=== PATIENT | female | born 1995 | race Caucasian/White ===

== ENCOUNTER 2016-05-17 10:24 | Emergency (ER) | payer MEDICAID, OTHER ==
[~2016-05-17] VITALS: Wt 81.5 kg
[2016-05-17 12:36] LABS: URINE BLOOD (Dip) POC Trace-intact (NEGATIVE)
--- NOTE | 2016-05-17 12:59 | RADRPT ---
PROCEDURE: CT Brain without contrast. CLINICAL INDICATION: Pain, headache TECHNIQUE: Routine CT scan of the brain was performed on a high resolution multi detector scanner without intravenous contrast. One or more of the following dose reduction techniques were used: Auto mated exposure control; Adjustment of the mA and/or kV according to patient size; Use of iterative r econstruction technique. CTDI = 32 mGy. DLP = 451 mGy-cm. COMPARISON: No prior relevant examinations are available for comparison. FINDINGS: Hemorrhage: No evidence of intracranial hemorrhage. Acute ischemic changes: No evidence of acute ischemic changes. Mass effect/Midline shift: None. Parenchymal volume: Within normal limits for age. Ventricular system: Concordant with parenchymal volume. Chronic changes: Parenchymal attenuation is within normal limits. Extracranial soft tissues: Unremarkable. Calvarium: No fractures. Paranasal sinuses: Visualized paranasal sinuses are clear. Mastoid air cells: Visualized mastoid air cells are clear. IMPRESSION: No acute intracranial abnormalities. Normal appearance the brain parenchyma. RPTAT: AADD .Ariel Rosenberg MD, MD Date Time Electronically viewed and signed by .Ariel Rosenberg MD, on 05/17/2016 12:59 .B/
[2016-05-17] MEDS ORDERED: IBUP-1542 PO (13:11)
--- NOTE | 2016-05-17 13:14 | ERD ---
ER Documentation Chief Complaint Date/Time DATE: 05/17/16 TIME: 13:13 Chief Complaint non traumatic headache for the past few months. no trauma. noneuro def HPI This 89-year-old female presents with a bitemporal and oral headache for last few months. She states that her doctor just wants to give her pills and has not done any studies. She has additional complaint of fatigue and shakiness over the last few months and states that she is under stress. She denies any visual changes, weakness, bowel or bladder incontinence, fevers, visual changes , urinary complaints, additional symptoms. ROS All systems reviewed and are negative except as per history of present illness. Medications Home Meds Active Scripts Ibuprofen* (Motrin*) 600 Mg Tab, 600 MG PO Q6, #20 TAB Prov:WILLIAM RÍOS MD 05/17/16 Allergies Allergies: Coded Allergies: No Known Allergy (Unverified , 05/17/16) PMhx/Soc Medical and Surgical Hx: pt denies Medical Hx History of Surgery: Yes (R ARM) Anesthesia Reaction: No Hx Neurological Disorder: No Hx Respiratory Disorders: No Hx Cardiac Disorders: No Hx Psychiatric Problems: No Hx Miscellaneous Medical Probl: No Hx Alcohol Use: No Hx Substance Use: No Hx Tobacco Use: No Smoking Status: Never smoker Physical Exam Vitals Vital Signs Date Time Temp Pulse Resp B/P Pulse Ox O2 Delivery O2 Flow Rate FiO2 05/17/16 10:28 98.9 59 20 105/88 100 Physical Exam Const: [] Alert, not ill-appearing. Head: Atraumatic. Reproducible headache with palpation of the C1 paraspinous muscles and bitemporal area. Eyes: Normal Conjunctiva. Eyes are PERRLA extraocular movements intact. ENT: Normal External Ears, Nose and Mouth. Neck: Full range of motion..~ No meningismus. Resp: Clear to auscultation bilaterally Cardio: Regular rate and rhythm, no murmurs Abd: Soft, non tender, non distended. Normal bowel sounds Skin: No petechiae or rashes Back: No midline or flank tenderness Ext: No cyanosis, or edema Neur: Awake and alert. Cranial nerves II through XII grossly intact. Normal gait. No cerebellar signs. Psych: Normal Mood and Affect Results 24 hrs Laboratory Tests Test 05/17/16 12:40 Bedside Urine Blood Trace-intact Bedside Urine Glucose (UA) Negative Bedside Urine Ketones (LAB) Negative Bedside Urine Leukocyte Esterase (L Negative Bedside Urine Nitrite (LAB) Negative Bedside Urine Protein (LAB) Negative Bedside Urine pH (LAB) 7.0 Procedures/MDM Given his certain cause of headache and family request. A CT venous approach is normal. Visual acuity is normal. Urine shows trace blood but no leukocytes , glucose or nitrites. HCG is negative. Patient presents with bitemporal and occipital headache of uncertain etiology. I suspect she has a tension headache. Patient has multiple complaints no signs or symptoms to suggest serious illness. Recommend follow-up with primary care doctor for a physical otherwise return for any worsening symptoms of headache as directed after instructions. The patient was stable with no new complaints during the ER course. Clinically, there is no current evidence to suggest meningitis, sepsis, acute abdomen, pneumonia, acute coronary syndrome, pulmonary embolism, or any other emergent condition appearing to require further evaluation or hospitalization. The patient should certainly return for any new or worsening symptoms per the aftercare instructions. They should otherwise follow-up with her primary care doctor for reevaluation this week. Departure Diagnosis: Primary Impression: Headache Headache type: unspecified Headache chronicity pattern: unspecified pattern Intractability: not intractable Qualified Code: R51 - Nonintractable headache, unspecified chronicity pattern, unspecified headache type Condition: Stable Patient Instructions: Self-Care for Headaches, Headache, Tension Additional Instructions: CT read as normal. Suspect tension headache. Recommend follow-up with primary doctor for physical and further evaluation and treatment. WILLIAM RÍOS MD May 17, 2016 13:14
[2016-05-17 13:44] VITALS: BP 114/57; PULSE 72; RESP 18
== END 2016-05-17 13:46 | disposition home or self-care (01) ==
LOC: FTE 10:24
DX: R51 Headache (principal)
CPT/HCPCS: 70450; 81003; Z7502

== ENCOUNTER 2016-06-21 12:46 | Emergency (ER) | payer OTHER ==
[~2016-06-21] VITALS: Ht 160 cm; Wt 83.5 kg
[~2016-06-21 12:46] MED LIST: IBUP-1542 PO
[2016-06-21 12:54] VITALS: Ht 160 cm; Wt 83.5 kg
[2016-06-21] MEDS ORDERED: IBUPROFEN 600 MG TAB PO ONE (15:00)
[2016-06-21 15:08] LABS: URINE BLOOD (Dip) POC Negative (NEGATIVE)
[2016-06-21 15:13] LABS: URINE BLOOD (Dip) POC Negative (NEGATIVE)
--- NOTE | 2016-06-21 16:24 | RADRPT ---
PROCEDURE: XR Lumbar Spine. CLINICAL INDICATION: Post traumatic low back pain. TECHNIQUE: AP, cone-down lateral, and lateral views of the lumbar spine were obtained. COMPARISON: None. FINDINGS: Mineralization is within normal limits. Vertebral bodies are normal in height. No fracture is iden tified. Lumbar lordosis is preserved. No vertebral subluxation is seen. The intervertebral discs are normal in height. Paraspinal contours are unremarkable. RPTAT:HJJR IMPRESSION: Unremarkable three view series of the lumbar spine. Physician Reg Date Time Electronically viewed and signed by Physician Reg on 06/21/2016 16:23 /
[2016-06-21] MEDS ORDERED: IBUP-1542 PO (16:35)
[2016-06-21] MEDS ORDERED: TRAM50TA2 PO (16:35)
--- NOTE | 2016-06-21 16:39 | ERD ---
ER Documentation Chief Complaint Date/Time DATE: 06/21/16 TIME: 16:37 Chief Complaint BACK PAIN X 4 DAYS S/P SLIP AND FALL DOWN THE STAIRS ON TUESDAY HPI This 89-year-old female complains of low back pain 4 days after slipping down some stairs onto her buttocks and back. She denies any bowel bladder incontinence, weakness, bleeding lacerations or head injury. ROS All systems reviewed and are negative except as per history of present illness. Medications Home Meds Active Scripts Tramadol HCl (Tramadol HCl) 50 Mg Tablet, 50 MG PO Q4 Y for PAIN, #12 TAB Prov:WILLIAM RÍOS MD 06/21/16 Ibuprofen* (Motrin*) 600 Mg Tab, 600 MG PO Q6, #20 TAB Prov:WILLIAM RÍOS MD 06/21/16 Ibuprofen* (Motrin*) 600 Mg Tab, 600 MG PO Q6, #20 TAB Prov:WILLIAM RÍOS MD 05/17/16 Allergies Allergies: Coded Allergies: No Known Allergy (Unverified , 05/17/16) PMhx/Soc History of Surgery: Yes (R ARM) Anesthesia Reaction: No Hx Neurological Disorder: No Hx Respiratory Disorders: No Hx Cardiac Disorders: No Hx Psychiatric Problems: No Hx Miscellaneous Medical Probl: No Hx Alcohol Use: No Hx Substance Use: No Hx Tobacco Use: No Physical Exam Vitals Vital Signs Date Time Temp Pulse Resp B/P Pulse Ox O2 Delivery O2 Flow Rate FiO2 06/21/16 12:54 98.2 77 18 112/68 100 Physical Exam Const: [] Alert, [id number]-[id number]. Head: Atraumatic Eyes: Normal Conjunctiva ENT: Normal External Ears, Nose and Mouth. Neck: Full range of motion..~ No meningismus. Resp: Clear to auscultation bilaterally Cardio: Regular rate and rhythm, no murmurs Abd: Soft, non tender, non distended. Normal bowel sounds Skin: No petechiae or rashes Back: No midline or flank tenderness. Mild generalized tenderness extending from L2-L4 paraspinous muscles without significant midline tenderness no deformities appreciated. Patient is ambulatory without deficits or weakness. Ext: No cyanosis, or edema Neur: Awake and alert Psych: Normal Mood and Affect Results 24 hrs Laboratory Tests Test 06/21/16 15:08 06/21/16 15:13 Bedside Urine pH (LAB) 5.5 5.5 Bedside Urine Protein (LAB) Negative Negative Bedside Urine Glucose (UA) Negative Negative Bedside Urine Ketones (LAB) Negative Negative Bedside Urine Blood Negative Negative Bedside Urine Nitrite (LAB) Negative Negative Bedside Urine Leukocyte Esterase (L 1+ 1+ Current Medications Medications (Trade) Dose Ordered Sig/Avani Route PRN Reason Start Time Stop Time Status Last Admin Dose Admin Ibuprofen (Motrin) 600 mg ONCE ONCE PO 06/21/16 15:00 06/21/16 15:01 DC 06/21/16 15:08 Procedures/MDM Urine shows 1+ leukocytes and hCG is negative. There is no gross blood nitrates glucose. X-ray LS-Spine 3V Interpreted by me: Bones: No fracture, or lytic lesions Joints: No dislocation Foreign body: None. Impression-normal lumbar spine x-ray Patient presents with low back pain after slipping backwards onto her buttocks and back 4 days ago. X-rays normal. There is no signs of cauda equina syndrome , fracture, dislocation, neurologic deficits, additional complications of her mechanical fall. She will treated with ibuprofen and tramadol, instructions for back exercises and further observation at home. The patient was stable with no new complaints during the ER course. Clinically, there is no current evidence to suggest meningitis, sepsis, acute abdomen, pneumonia, acute coronary syndrome, pulmonary embolism, or any other emergent condition appearing to require further evaluation or hospitalization. The patient should certainly return for any new or worsening symptoms per the aftercare instructions. They should otherwise follow-up with her primary care doctor for reevaluation this week. Departure Diagnosis: Primary Impression: Injury of back Encounter type: initial encounter Qualified Code: S39.92XA - Injury of back , initial encounter Condition: Stable Patient Instructions: Back Exercises, Lumbar, Back Sprain/Strain Additional Instructions: Examines normal hoy. Cheque otro vez con plaza doctor primario en el proximo lindsey or regresa para mas o nueva simptomas. WILLIAM RÍOS MD Jun 21, 2016 16:38
== END 2016-06-21 17:04 | disposition home or self-care (01) ==
LOC: FTE 12:46
DX: S39.92XA Unspecified injury of lower back, initial encounter (principal); W10.9XXA Fall (on) (from) unspecified stairs and steps, initial encounter; Y92.9 Unspecified place or not applicable
CPT/HCPCS: 72100; 81003; Z7502; Z7610

== ENCOUNTER 2017-12-27 11:19 | Emergency (ER) | END 2017-12-27 16:02 | disposition home or self-care (01) ==

== ENCOUNTER 2018-04-28 13:16 | Emergency (ER) | payer OTHER ==
[~2018-04-28] VITALS: Wt 76.5 kg
[~2018-04-28 13:16] MED LIST changes: +TRAM50TA2 PO
[2018-04-28] MEDS ORDERED: ONDANSETRON 4 MG INJ IV STA (14:31)
[2018-04-28] MEDS ORDERED: FAMOTIDINE 20 MG INJ IV STA (14:31)
[2018-04-28] MEDS ORDERED: SOD CHLORIDE 0.9% 500 ML IV STA (14:31)
[2018-04-28] MEDS ORDERED: LIDOCAINE/MYLANTA 40 ML BTL PO STA (14:31)
--- NOTE | 2018-04-28 14:35 | ERD ---
ER Documentation Chief Complaint Chief Complaint ABD PAIN X 4 DAYS HPI This is a 22-year-old female with a nonsignificant past medical history presents ED with upper abdominal pain that is been present for the past 2 days. Patient describes the pain is constant and rates it at a 6 out of 10. Patient admits to having 2 episodes of nonbilious nonbloody vomiting associated with the belly pain. Denies any alleviating or aggravating factors. Patient is . ADMITS to some vaginal itching but denies any other symptoms. Denies diarrhea, constipation, melena, hematochezia, fever, chills, hematemesis, hemoptysis, hematuria, back pain, vaginal pain or vaginal discharge. ROS All systems reviewed and are negative except as per history of present illness. Medications Home Meds Active Scripts Clotrimazole* (Clotrimazole* AF) 1% - 30 Gm Cream.gm., 1 APPLIC TOP BID for 7 Days, TUB Prov:REJI BARRERA PA-C 04/28/18 Famotidine* (Pepcid*) 20 Mg Tablet, 20 MG PO BID for 4 Days, TAB Prov:REJI BARRERA PA-C 04/28/18 Ondansetron (Ondansetron Odt) 4 Mg Tab.rapdis, 4 MG PO Q6H PRN for NAUSEA AND/OR VOMITING, #10 TAB Prov:REJI BARRERA PA-C 04/28/18 Ibuprofen* (Motrin*) 600 Mg Tab, 600 MG PO Q6, #30 TAB Prov:MARINO ERICKSON PA-C 12/27/17 Tramadol HCl (Tramadol HCl) 50 Mg Tablet, 50 MG PO Q4 PRN for PAIN, #12 TAB Prov:WILLIAM RÍOS MD 06/21/16 Ibuprofen* (Motrin*) 600 Mg Tab, 600 MG PO Q6, #20 TAB Prov:WILLIAM RÍOS MD 06/21/16 Ibuprofen* (Motrin*) 600 Mg Tab, 600 MG PO Q6, #20 TAB Prov:WILLIAM RÍOS MD 05/17/16 Allergies Allergies: Coded Allergies: No Known Allergy (Unverified , 05/17/16) PMhx/Soc History of Surgery: Yes (R ARM) Anesthesia Reaction: No Hx Neurological Disorder: No Hx Respiratory Disorders: No Hx Cardiac Disorders: No Hx Psychiatric Problems: No Hx Miscellaneous Medical Probl: No Hx Alcohol Use: No Hx Substance Use: No Hx Tobacco Use: No Physical Exam Vitals Vital Signs Date Temp Pulse Resp B/P (MAP) Pulse Ox O2 O2 Flow FiO2 Time Delivery Rate 04/28/18 98.1 78 18 125/71 99 13:20 (89) Physical Exam Physical Exam Vitals signs: Reviewed by me. General: Well developed, well nourished, in no acute distress. Patient is awake and alert. Head: Normocephalic, atraumatic. Eyes: Normal conjunctiva, Pupils PERRLA, EOM intact grossly ENT: Pharynx is clear, Moist mucous membranes, external ears, nose and mouth normal Neck: Supple, no masses, lymphadenopathy or JVD Respiratory: Clear to auscultation bilaterally with no wheezing, rhonchi, rales, no distress Cardiovascular: RRR, no murmurs, rubs, or gallops Abdominal: Soft, nondistended, no peritoneal signs, no rigidity, no surgical abdomen, bowel sounds present all 4 quadrants, mild tenderness in epigastric region, nontender in all other quadrants Covington sign negative, M McBurney's point nontender, no rebound tenderness : defers Back: No midline tenderness. No flank tenderness Neurologic: Alert and oriented, moving all extremities, normal speech, no focal weakness, no cerebellar signs. Normal mentation Skin: warm and dry, No rash Psych: Normal mood Result Diagram: 04/28/18 1450 04/28/18 1450 Results 24 hrs Laboratory Tests Test 04/28/18 14:42 04/28/18 14:45 04/28/18 14:50 Urine Test NEGATIVE Urine Color YELLOW Urine Clarity CLEAR Urine pH 7.0 Urine Specific Mcallister 1.016 Urine Ketones NEGATIVE mg/dL Urine Nitrite NEGATIVE mg/dL Urine Bilirubin NEGATIVE mg/dL Urine Urobilinogen 2+ mg/dL Urine Leukocyte Esterase NEGATIVE [place]/ul Urine Hemoglobin NEGATIVE mg/dL Urine Glucose NEGATIVE mg/dL Urine Total Protein NEGATIVE mg/dl White Blood Count 7.2 10^3/ul Red Blood Count 4.55 10^6/ul Hemoglobin 14.0 g/dl Hematocrit 43.3 % Mean Corpuscular Volume 95.2 fl Mean Corpuscular Hemoglobin 30.8 pg Mean Corpuscular 32.3 g/dl Hemoglobin Concent Red Cell Distribution Width 12.9 % Platelet Count 360 10^3/UL Mean Platelet Volume 9.9 fl Immature Granulocytes % 0.400 % Neutrophils % 70.1 % Lymphocytes % 16.7 % Monocytes % 9.3 % Eosinophils % 2.9 % Basophils % 0.6 % Nucleated Red Blood Cells % 0.0 /100WBC Immature Granulocytes # 0.030 10^3/ul Neutrophils # 5.1 10^3/ul Lymphocytes # 1.2 10^3/ul Monocytes # 0.7 10^3/ul Eosinophils # 0.2 10^3/ul Basophils # 0.0 10^3/ul Nucleated Red Blood Cells # 0.0 10^3/ul Sodium Level 141 mmol/L Potassium Level 4.4 mmol/L Chloride Level 103 mmol/L Carbon Dioxide Level 30 mmol/L Anion Gap 8 Blood Urea Nitrogen 7 mg/dl Creatinine 0.59 mg/dl Est Glomerular Filtrat > 60 mL/min Rate mL/min Glucose Level 83 mg/dl Calcium Level 9.7 mg/dl Total Bilirubin 0.2 mg/dl Direct Bilirubin 0.00 mg/dl Indirect Bilirubin 0.2 mg/dl Aspartate Amino 22 IU/L Transf (AST/SGOT) Alanine 17 IU/L Aminotransferase (ALT/SGPT) Alkaline Phosphatase 71 IU/L Total Protein 7.8 g/dl Albumin 4.4 g/dl Globulin 3.40 g/dl Albumin/Globulin Ratio 1.29 Lipase 66 U/L Current Medications Medications Dose Sig/Avani Start Time Status Last (Trade) Ordered Route PRN Stop Time Admin Dose Reason Admin Sodium 500 ml @ Q1H STAT 04/28/18 DC 04/28/18 Chloride 500 mls/hr IV 14:31 14:47 04/28/18 15:30 Ondansetron 4 mg ONCE STAT 04/28/18 DC 04/28/18 HCl (Zofran IV 14:31 14:51 Inj) 04/28/18 14:33 Famotidine 20 mg ONCE STAT 04/28/18 DC 04/28/18 (Pepcid Iv) IV 14:31 14:51 04/28/18 14:33 40 ml ONCE STAT 04/28/18 DC 04/28/18 Miscellaneous PO 14:31 14:51 Medication 04/28/18 14:33 (Gi Cocktail (2)) Procedures/MDM EKG, MONITORS, & DIAGNOSTIC IMAGING: [place] [address] Radiology Main Line: [phone] DIAGNOSTIC IMAGING REPORT Patient: POOJA MANCILLA : 1995 Age: 22 Sex: F MR #: [id number] DOS: 04/28/18 1431 Ordering MD: REJI BARRERA PA-C Location: [facility] Room/Bed: PROCEDURE: US Abdomen. CLINICAL INDICATION: abdominal pain TECHNIQUE: Multiple real-time images were acquired of the patient's right upper quadrant abdomen and retroperitoneum utilizing a high resolution transducer. COMPARISON: None FINDINGS: The liver demonstrates normal echogenicity. The liver is normal in size and no focal solid lesions are seen. The liver measures 15.4 cm in length. The portal vein is patent with normal direction of flow. No intrahepatic biliary dilatation is seen. No gallstones are identified within the gallbladder. There is no perichole cystic fluid or gallbladder wall thickening. The common bile duct measures 5 mm in maximal dimension. Increased No free fluid is identified. The right kidney is normal in size, and demonstrate normal echogenicity and cortical thickness. The right kidney measures 10.3 cm in long dimension. There is no evidence of hydronephrosis. There are no kidney stones. RPTAT: AA IMPRESSION: Unremarkable right upper quadrant abdominal ultrasound. .Adelfo Phan MD, MD Date Time Electronically viewed and signed by .Adelfo Phan MD, MD on 04/28/2018 15:36 .S/ CC: REJI BARRERA PA-C [id number] LAB INTERPRETATION: CBC shows no evidence of hemorrhage or infection Chemistry shows no evidence of significant electrolyte abnormalities or renal insufficiency Liver function test shows no evidence of acute biliary or hepatic dysfunction Lipase shows no evidence of acute pancreatitis UA unremarkable Urine negative ER COURSE: The patient was given normal saline, Pepcid, GI cocktail, Zofran The medication was well tolerated and the patient reports improvement in symptoms. The patient was stable throughout ED course. I kept the patient and/or family informed of laboratory and diagnostic imaging results throughout the emergency room course. The patient was promptly evaluated and a treatment plan was devised based on H&P and other data. This plan was discussed with the patient who agreed and had no further questions or concerns prior to discharge. MEDICAL DECISION MAKING: Non- woman presenting with abdominal pain. test is negative. Considered causes of female-specific abdominal pain including pelvic infla mmatory disease, tubo-ovarian abscess, Slwq-[id number]-[id number], and ovarian torsion. Also considered causes of abdominal pain that are not gender-specific (e.g., appendicitis, volvulus, small bowel obstruction, mesenteric adenitis, acute cholecystitis/choledocholithiasis and other biliary pathology, etc.). Patient well-appearing with normal vital signs. No peritoneal signs and abdomen benign on multiple repeat examinations. Pt well hydrated. Laboratory testing and imaging here reviewed and normal. This is likely could be a gastritis given history and PE. patient also is complaining of vaginal itching - but does not want me to do a pelvic exam - will give clotrimazole for itching. advised to follow up with gynecology. Patient given strict return precautions for worsening pain, inability to eat/drink, fevers (temperature over 100.4F), or other concerns. Prior to discharge all questions answered. She agrees with treatment plan and understands strict return precautions. Follow-up for repeat abdominal exam within 12 hours. DISPOSITION PLAN: We discussed follow up with the patient's primary care doctor within 24 to 48 hours. Patient counseled regarding my diagnostic impression and care plan. Prior to discharge all questions answered. Pt agrees with treatment plan and understands strict return precautions. Precautionary instructions provided including instructions to return to the ER if not improving or for any worsening or changing symptoms or concerns. SPECIALIST FOLLOW UP RECOMMENDED: None Patient has been advised to follow up with primary care in 1-2 days. Disclaimer: Inadvertent spelling and grammatical errors are likely due to EHR/dictation software use and do not reflect on the overall quality of patient care. Also, please note that the electronic time recorded on this note does not necessarily reflect the actual time of the patient encounter. Blood Pressure Assessment: Patient's blood pressure was elevated (>120/80) but appears stable without evidence of hypertension emergency or urgency. The patient was counseled about the risks of hypertension and urged to pursue outpatient monitoring and therapy within a week with their primary care physician. Departure Diagnosis: Primary Impression: Abdominal pain Abdominal location: upper abdomen, unspecified Qualified Codes: R10.10 - Upper abdominal pain, unspecified Condition: Stable Patient Instructions: Abdominal Pain, Gastritis (Adult), Nausea and Vomiting-Adult Referrals: COMM[facility] Additional Instructions: Patient advised to return to the ED immediately for new or worsening symptoms. Patient advised to follow up with primary care provider in the next 24-48 hours. Patient verbalized understanding and agrees with treatment plan and course of action. If patient has no primary care they may follow up with one of the community clinics listed on the following page or one of the options listed below [facility] [address] [place] [id number] or [facility] [address] [place] [address] [facility] [address] [place] [address] REJI BARRERA PA-C Apr 28, 2018 14:35
[2018-04-28] MEDS ORDERED: ONDA4TAB14 PO (15:50)
[2018-04-28] MEDS ORDERED: CLOT30CR24 TOP (15:50)
[2018-04-28] MEDS ORDERED: FAMO-96 PO (15:50)
[2018-04-28 16:02] VITALS: BP 103/51; PULSE 70; RESP 20
== END 2018-04-28 16:17 | disposition home or self-care (01) ==
LOC: FTE 13:16
DX: R10.10 Upper abdominal pain, unspecified (principal); R11.10 Vomiting, unspecified; N89.8 Other specified noninflammatory disorders of vagina
CPT/HCPCS: 76705; 80053; 81003; 83690; 84703; 85025; 96374; 96375; J2405; J7040; Z7502; Z7610